=== PATIENT | male | born 1940 | race Caucasian/White ===

== ENCOUNTER 2017-04-22 18:19 | Observation (INO) | payer MEDICARE ==
[2017-04-22] MEDS ORDERED: methylPREDNISolone SOD SUCCI 125 MG/2 ML VIAL IV STA (18:24)
[2017-04-22 19:06] LABS: Basophils % (A) 1 %; CH 32.6; CHCM 33.5; Eosinophils # (A) 0.2 k/uL (0-0.7); Eosinophils % (A) 4 %; HCT 38.5 % (39.0-53.0); HDW 2.54; HGB 12.3 gm/dL (13.0-17.5); Luc % (Auto) 4; Lymphocytes # (A) 0.7 k/uL (1.0-4.8); Lymphocytes % (A) 14 %; MCH 31.4 pg (25.0-35.0); Mean Platelet Volume 6.9; Monocytes # (A) 0.3 k/uL (0-1.0); Monocytes % (A) 7 %; Neutrophils # (A) 3.2 k/uL (1.3-7.7); Neutrophils % (A) 70 %; RBC 3.93 m/uL (4.30-5.90); RDW 13.9 % (11.5-15.5); WBC 4.6 k/uL (3.8-10.6); WBC (Perox) 5.01
[2017-04-22 19:12] LABS: ALT 20 U/L (21-72); AST 20 U/L (17-59); Alkaline Phosphatase 56 U/L (38-126); Anion Gap 7 mmol/L; Blood Urea Nitrogen 22 mg/dL (9-20); Calcium 8.8 mg/dL (8.4-10.2); Carbon Dioxide 25 mmol/L (22-30); Chloride 109 mmol/L (98-107); Glucose 81 mg/dL (74-99); Non-African American GFR(MDRD) >60 (>60 ml/min/1.73 sqM); Potassium 4.5 mmol/L (3.5-5.1); Sodium 141 mmol/L (137-145); Total Bilirubin 0.6 mg/dL (0.2-1.3); Total Protein 6.5 g/dL (6.3-8.2)
[2017-04-22 19:19] LABS: INR 1.1 (<1.2); Partial Thromboplastin Time 22.7 sec (22.0-30.0); Prothrombin Time 11.4 sec (9.0-12.0)
[2017-04-22 19:24] LABS: Creatine Kinase 102 U/L (55-170)
--- NOTE | 2017-04-22 19:34 | XR ---
EXAMINATION TYPE: XR chest 2V DATE OF EXAM: 04/22/2017 COMPARISON: Most recent chest x-ray January 25, 2017 HISTORY: LT in breathing and left-sided chest pain. TECHNIQUE: Frontal and lateral views of the chest are obtained. FINDINGS: There is chronic parenchymal change without suspicious new focal air space opacity, pleura l effusion, or pneumothorax seen. The cardiac silhouette size is upper limits of normal with ectatic thoracic aorta. Rounded opacity superior to aortic knob is unchanged from September 13, 2016 x-ray. R etrocardiac opacity consistent with moderate to large size hiatal hernia is redemonstrated The osseo us structures are demineralized. IMPRESSION: Chronic changes without acute pulmonary process. No significant change from prior studie s.
[2017-04-22 19:39] LABS: Creatine Kinase MB 2.1 ng/mL (0.0-2.4); Troponin I <0.012 ng/mL (0.000-0.034)
[2017-04-22] MEDS ORDERED: ACETAMINOPHEN TAB 325 MG TAB PO PRN (20:20)
[2017-04-22] MEDS ORDERED: NALOXONE 0.4 MG/ML 1 ML VIAL IV PRN (20:20)
[2017-04-22] MEDS ORDERED: ONDANSETRON 4 MG/2 ML VIAL IVP PRN (20:20)
[2017-04-22] MEDS ORDERED: ASPIRIN 325 MG TAB PO STA (20:24)
[2017-04-22] MEDS ORDERED: HYDROcodone/APAP 5-325MG 1 EACH TAB PO PRN (20:25)
[2017-04-22] MEDS ORDERED: DEXTROSE 5%-0.45% NACL 1,000 ML IV SCH (20:30)
--- NOTE | 2017-04-22 20:35 | ED ---
General Adult HPI - General Chief complaint: Chest Pain Stated complaint: LEWIS Time Seen by Provider: 04/22/17 18:21 Source: patient, family, EMS, RN notes reviewed Mode of arrival: EMS Limitations: no limitations - History of Present Illness Initial comments: 77-year-old man presented by EMS with chief complaint of difficulty breathing. Patient also reported chest pain which initially began on the left, progressed to the right and then was bilateral. Pain was mild. Chest pain was worse with cough pain is sharp in nature. Patient only takes ibuprofen 4 times a day, he only took one treatment this morning. He has a had a cough productive of white sputum. Denies fever or chills. Denies radiating chest pain, denies nausea vomiting or diarrhea. - Related Data Home Medications Medication Instructions Recorded Confirmed Amantadine HCl [Symmetrel] 100 mg PO BID 09/27/14 04/22/17 Losartan [Cozaar] 50 mg PO DAILY 09/27/14 04/22/17 Multivitamins, Thera [Multivitamin 1 tab PO DAILY 09/27/14 04/22/17 (formulary)] Omeprazole [PriLOSEC] 20 mg PO DAILY 09/27/14 04/22/17 Carbidopa-Levodopa 25-100 mg 2 tab PO TID 12/24/15 04/22/17 [Sinemet 25-100 mg] Entacapone [Comtan] 200 mg PO TID 12/24/15 04/22/17 Vit C/E/Zn/Coppr/Lutein/Zeaxan 1 cap PO DAILY 12/24/15 04/22/17 [Preservision Areds 2 Softgel] Aspirin EC [Ecotrin Low Dose] 81 mg PO HS 04/06/16 04/22/17 Psyllium Husk 100% [Metamucil 6 gm PO DAILY 04/06/16 04/22/17 Packet] HYDROcodone/APAP 5-325MG [[place] 1 tab PO HS PRN 08/15/16 04/22/17 5-325] Mirabegron [Myrbetriq] 50 mg PO DAILY 08/16/16 04/22/17 levETIRAcetam [Keppra] 250 mg PO BID 08/16/16 04/22/17 Carbidopa-Levodopa 25-100 mg 3 tab PO DAILY@1400 09/13/16 04/22/17 [Sinemet 25-100] Acetaminophen/Diphenhydramine 1 tab PO HS PRN 04/22/17 04/22/17 [Tylenol PM 500-25mg] Budesonide Unknown Strength 1 vial INHALATION RT-QID 04/22/17 04/22/17 Carbidopa/Levodopa [Sinemet CR 1 tab PO DAILY 04/22/17 04/22/17 50-200 mg] Donepezil [Aricept] 10 mg PO HS 04/22/17 04/22/17 Meloxicam [Mobic] 7.5 mg PO DAILY 04/22/17 04/22/17 Oxybutynin Chloride [Ditropan] 2.5 mg PO HS 04/22/17 04/22/17 Previous Rx's Medication Instructions Recorded fentaNYL 25MCG/HR PATCH [Duragesic 25 mcg TRANSDERM Q72H #10 patch 12/28/15 25MCG/HR] Allergies Allergy/AdvReac Type Severity Reaction Status Date / Time adhesive tape Allergy Unknown Verified 04/22/17 19:53 iodine Allergy Unknown Verified 04/22/17 19:53 Penicillins Allergy Unknown Verified 04/22/17 19:53 Sulfa (Sulfonamide Allergy Unknown Verified 04/22/17 19:53 Antibiotics) STEROID SHOTS Allergy Unknown Uncoded 04/22/17 19:53 Review of Systems ROS Statement: Those systems with pertinent positive or pertinent negative responses have been documented in the HPI. ROS Other: All systems not noted in ROS Statement are negative. Past Medical History Past Medical History: Asthma, Cancer, Heart Failure, COPD, Hearing Disorder / Deafness, Hyperlipidemia, Hypertension, Neurologic Disorder, Osteoarthritis (OA) , Pneumonia, Skin Disorder Additional Past Medical History / Comment(s): Bilateral groin spasms sometimes making it difficult to urinate, PARKINSON'S DISEASE; SKIN CANCER with removal; PROSTATE CANCER with removal, chronic back pain, lots of concussions in the 1950 's-sports related, BOGDAN in past and used CPAP but no longer a problem since wt loss, R tibial fractur. History of Any Multi-Drug Resistant Organisms: None Reported Past Surgical History: Heart Catheterization, Orthopedic Surgery, Prostate Surgery Additional Past Surgical History / Comment(s): 2006 and 2011 cardiac caths-no intervention,PROSTATECTOMY; MARYAM TOTAL KNEE ARTHROPLASTY with R knee redone x 3, colonoscopy with polypectomy-benign, Skin cancer removals, R elbow carpal tunnel , bilateral cataract removal. Past Anesthesia/Blood Transfusion Reactions: No Reported Reaction Past Psychological History: No Psychological Hx Reported Smoking Status: Never smoker Past Alcohol Use History: Rare Past Drug Use History: None Reported - Past Family History Father Family Medical History: CVA/TIA Additional Family Medical History / Comment(s): Father of CVA/fluid on the brain at age 66 yrs. Mother Family Medical History: Cancer Additional Family Medical History / Comment(s): Mother of lung cancer at the age of 82 yrs. She was exposed to 2nd hand smoke General Exam Limitations: no limitations General appearance: alert, in distress (Moderate respiratory distress) Head exam: Present: atraumatic, normocephalic Eye exam: Present: normal appearance, PERRL ENT exam: Present: normal exam, mucous membranes moist Neck exam: Present: normal inspection, full ROM. Absent: meningismus Respiratory exam: Present: respiratory distress, wheezes, decreased breath sounds, prolonged expiratory Cardiovascular Exam: Present: regular rate, normal rhythm GI/Abdominal exam: Present: soft. Absent: distended, tenderness Extremities exam: Present: normal inspection, normal capillary refill. Absent: pedal edema Neurological exam: Present: alert, oriented X3, other (Fine resting tremor) Psychiatric exam: Present: normal affect, normal mood Skin exam: Present: warm, dry. Absent: cyanosis, diaphoretic Course Vital Signs 04/22/17 04/22/17 04/22/17 18:54 19:17 20:26 Temperature 97.7 F Pulse Rate 64 70 69 Respiratory 18 18 18 Rate Blood Pressure 145/70 143/69 145/96 O2 Sat by Pulse 99 100 98 Oximetry - Reevaluation(s) Reevaluation #1: 04/22/17 20:32 On reevaluation, after IV steroids and albuterol patient is still somewhat dyspneic, complaining of shortness of breath. EKG Findings - EKG Comments: EKG Findings:: EKG shows right bundle branch block, as well as a left anterior fascicular block, ventricular rate 76,. 174, QRS duration 120, QTC 456 Medical Decision Making - Medical Decision Making 77 year-old male with history of COPD presents with cough and chest pain worse with cough. Pain is reproducible on examination, sharp in nature. Cough is productive of sputum. There is no history of fever. Chest x-ray shows no focal pneumonia, laboratory studies including CBC, CMP, cardiac enzymes are unremarkable. On reevaluation, the patient is still dyspneic, oxygen saturation is maintained on 2 L. Other vital signs are stable. Patient's lung sounds are somewhat improved. Patient will be admitted for further treatments of albuterol, continued steroids , and reevaluation. Although his chest pain was atypical and not concerning for cardiac disease, serial troponins will be obtained. Diagnosis: COPD exacerbation - Lab Data Result diagrams: 04/22/17 18:45 04/22/17 18:45 Lab Results 04/22/17 04/22/17 04/22/17 Range/Units 18:45 18:45 18:45 WBC 4.6 (3.8-10.6) k/uL RBC 3.93 L (4.30-5.90) m/uL Hgb 12.3 L (13.0-17.5) gm/dL Hct 38.5 L (39.0-53.0) % MCV 98.0 (80.0-100.0) fL MCH 31.4 (25.0-35.0) pg MCHC 32.0 (31.0-37.0) g/dL RDW 13.9 (11.5-15.5) % Plt Count 249 (150-450) k/uL Neutrophils % 70 % Lymphocytes % 14 % Monocytes % 7 % Eosinophils % 4 % Basophils % 1 % Neutrophils # 3.2 (1.3-7.7) k/uL Lymphocytes # 0.7 L (1.0-4.8) k/uL Monocytes # 0.3 (0-1.0) k/uL Eosinophils # 0.2 (0-0.7) k/uL Basophils # 0.0 (0-0.2) k/uL PT (9.0-12.0) sec INR (<1.2) APTT (22.0-30.0) sec D-Dimer (<0.60) mg/L FEU Sodium 141 (137-145) mmol/L Potassium 4.5 (3.5-5.1) mmol/L Chloride 109 H (98-107) mmol/L Carbon Dioxide 25 (22-30) mmol/L Anion Gap 7 mmol/L BUN 22 H (9-20) mg/dL Creatinine 1.02 (0.66-1.25) mg/dL Est GFR (MDRD) Af Amer >60 (>60 ml/min/1.73 sqM) Est GFR (MDRD) Non-Af >60 (>60 ml/min/1.73 sqM) Glucose 81 (74-99) mg/dL Plasma Lactic Acid Fuentes (0.7-2.0) mmol/L Calcium 8.8 (8.4-10.2) mg/dL Magnesium 2.0 (1.6-2.3) mg/dL Total Bilirubin 0.6 (0.2-1.3) mg/dL AST 20 (17-59) U/L ALT 20 L (21-72) U/L Alkaline Phosphatase 56 (38-126) U/L Total Creatine Kinase 102 (55-170) U/L CK-MB (CK-2) 2.1 (0.0-2.4) ng/mL CK-MB (CK-2) Rel Index 2.1 Troponin I <0.012 (0.000-0.034) ng/mL NT-Pro-B Natriuret Pep pg/mL Total Protein 6.5 (6.3-8.2) g/dL Albumin 3.9 (3.5-5.0) g/dL 04/22/17 04/22/17 04/22/17 Range/Units 18:45 18:45 18:45 WBC (3.8-10.6) k/uL RBC (4.30-5.90) m/uL Hgb (13.0-17.5) gm/dL Hct (39.0-53.0) % MCV (80.0-100.0) fL MCH (25.0-35.0) pg MCHC (31.0-37.0) g/dL RDW (11.5-15.5) % Plt Count (150-450) k/uL Neutrophils % % Lymphocytes % % Monocytes % % Eosinophils % % Basophils % % Neutrophils # (1.3-7.7) k/uL Lymphocytes # (1.0-4.8) k/uL Monocytes # (0-1.0) k/uL Eosinophils # (0-0.7) k/uL Basophils # (0-0.2) k/uL PT 11.4 (9.0-12.0) sec INR 1.1 (<1.2) APTT 22.7 (22.0-30.0) sec D-Dimer 0.30 (<0.60) mg/L FEU Sodium (137-145) mmol/L Potassium (3.5-5.1) mmol/L Chloride (98-107) mmol/L Carbon Dioxide (22-30) mmol/L Anion Gap mmol/L BUN (9-20) mg/dL Creatinine (0.66-1.25) mg/dL Est GFR (MDRD) Af Amer (>60 ml/min/1.73 sqM) Est GFR (MDRD) Non-Af (>60 ml/min/1.73 sqM) Glucose (74-99) mg/dL Plasma Lactic Acid Fuentes 1.7 (0.7-2.0) mmol/L Calcium (8.4-10.2) mg/dL Magnesium (1.6-2.3) mg/dL Total Bilirubin (0.2-1.3) mg/dL AST (17-59) U/L ALT (21-72) U/L Alkaline Phosphatase (38-126) U/L Total Creatine Kinase (55-170) U/L CK-MB (CK-2) (0.0-2.4) ng/mL CK-MB (CK-2) Rel Index Troponin I (0.000-0.034) ng/mL NT-Pro-B Natriuret Pep 186 pg/mL Total Protein (6.3-8.2) g/dL Albumin (3.5-5.0) g/dL Disposition Clinical Impression: COPD exacerbation Disposition: ADMITTED IP TO THIS [facility] Condition: Stable Referrals: Chance Palomares DO [Primary Care Provider] - 1-2 days Decision to Admit Reason: Admit from EC Decision Date: 04/22/17 Decision Time: 20:35
[2017-04-22] MEDS ORDERED: ASPIRIN 81 MG CHEW PO SCH (21:00)
[2017-04-22] MEDS ORDERED: DONEPEZIL 10 MG TAB PO SCH (21:00)
[2017-04-22 21:46] VITALS: BMI 25.6
[2017-04-22] MEDS ORDERED: diphenhydrAMINE 25 MG CAP PO PRN (22:21)
[2017-04-22] MEDS ORDERED: ALBUTEROL NEBULIZED 2.5 MG/3 ML INHALATION PRN (22:37)
[2017-04-22] MEDS: AMANTADINE HCL 100 MG CAP PO SCH (23:39)
[2017-04-22] MEDS: CARBIDOPA-LEVODOPA 25-100 MG 1 EACH TAB PO SCH (23:39)
[2017-04-22] MEDS: levETIRAcetam 250 MG TAB PO SCH (23:40)
[2017-04-22] MEDS: ENTACAPONE 200 MG TAB PO SCH (23:40)
[2017-04-23] MEDS ORDERED: ALBUTEROL NEBULIZED 2.5 MG/3 ML INHALATION SCH
[2017-04-23] MEDS ORDERED: diphenhydrAMINE 25 MG CAP PO PRN (01:43)
[2017-04-23 02:22] LABS: Appearance,Urine Clear (Clear); Bilirubin,Urine Negative (Negative); Glucose,Urine (UA) Negative (Negative); Ketones,Urine Negative (Negative); Leukocyte Esterase,Urine Negative (Negative); Nitrite,Urine Negative (Negative); Particle Count 391; Protein,Urine Negative (Negative); RBC,Urine 15 /hpf (0-5); Specific Gravity,Urine 1.017 (1.001-1.035); UA Billing (MACRO vs. MICRO) MICRO; Urobilinogen,Urine <2.0 mg/dL (<2.0); WBC,Urine 3 /hpf (0-5)
[2017-04-23 08:32] LABS: Basophils % (A) 0 %; CH 32.5; CHCM 33.6; Eosinophils % (A) 0 %; HCT 39.3 % (39.0-53.0); HDW 2.51; HGB 12.7 gm/dL (13.0-17.5); Luc # (Auto) 0.15; Luc % (Auto) 2; Lymphocytes # (A) 0.4 k/uL (1.0-4.8); Lymphocytes % (A) 4 %; MCH 31.5 pg (25.0-35.0); MCHC 32.4 g/dL (31.0-37.0); MCV 97.4 fL (80.0-100.0); Mean Platelet Volume 7.1; Monocytes # (A) 0.3 k/uL (0-1.0); Monocytes % (A) 3 %; Neutrophils % (A) 92 %; RBC 4.03 m/uL (4.30-5.90); RDW 13.4 % (11.5-15.5); WBC 9.8 k/uL (3.8-10.6); WBC (Perox) 9.93
[2017-04-23 08:50] LABS: Anion Gap 11 mmol/L; Blood Urea Nitrogen 26 mg/dL (9-20); Calcium 9.5 mg/dL (8.4-10.2); Carbon Dioxide 19 mmol/L (22-30); Chloride 108 mmol/L (98-107); Glucose 140 mg/dL (74-99); Non-African American GFR(MDRD) >60 (>60 ml/min/1.73 sqM); Potassium 4.7 mmol/L (3.5-5.1); Sodium 138 mmol/L (137-145)
[2017-04-23] MEDS: ALBUTEROL NEBULIZED 2.5 MG/3 ML INHALATION SCH ×2 (08:52→11:33)
[2017-04-23] MEDS ORDERED: LOSARTAN 50 MG TAB PO SCH (09:00)
[2017-04-23] MEDS ORDERED: predniSONE 50 MG TAB PO SCH (09:00)
[2017-04-23] MEDS: levETIRAcetam 250 MG TAB PO SCH (09:55)
[2017-04-23] MEDS: ENTACAPONE 200 MG TAB PO SCH (09:55)
[2017-04-23] MEDS: CARBIDOPA-LEVODOPA 25-100 MG 1 EACH TAB PO SCH (09:55)
[2017-04-23] MEDS: AMANTADINE HCL 100 MG CAP PO SCH (09:55)
[2017-04-23] MEDS ORDERED: CARBIDOPA-LEVODOPA 25-100 MG 1 EACH TAB PO SCH (14:00)
[2017-04-23 14:45] VITALS: BP 154/81; PULSE 93; RESP 17; TEMP 98
--- NOTE | 2017-04-24 15:11 | HP ---
DATE OF ADMISSION: 04/22/17 COMBINED HISTORY AND PHYSICAL/DISCHARGE SUMMARY CHIEF COMPLAINT: Shortness of breath. HISTORY OF PRESENT ILLNESS: This is a 77-year-old gentleman with past medical history of multiple medical problems including asthma, COPD, CHF, dementia, being followed by Dr. Palomares in the outpatient setting was admitted to the hospital with increasing shortness of breath. The patient had difficulty breathing and the patient also had some vague chest pains. The patient came to [facility] and was admitted for further evaluation and treatment. There is no history of fever, rigors or chills. No history of headache, loss of consciousness or seizures. Past medical history of asthma, COPD, CHF, hypertension, history of DJD, cardiac catheterization. Medications prior to admission are: Home medications are: 1. patch 25 mcg q72 hours. 2. Oxybutynin. 3. Hydrocodone. 4. Aricept. 5. Ecotrin. 6. Tylenol. 7. Meloxicam. 8. Cilium. 9. Carbidopa/L-Dopa. 10. Keppra. 12. Prilosec. 13. Symmetrel. 14. Sinemet. 15. Vitamins. 16. Cozaar. 17. Prednisone taper. 18. Cipro. 19. Ventolin. ALLERGIES: ADHESIVE TAPES, IODINE, STEROIDS. FAMILY HISTORY: History of cerebrovascular accident, transient ischemic attack in the family. SOCIAL HISTORY: No history of smoking and no history of alcohol intake. REVIEW OF SYSTEMS: HEENT: Diminished vision. Diminished hearing. Cardiovascular system: No angina or palpitations. Respiratory: As mentioned earlier. GI: As mentioned earlier. : No dysuria. Nervous system: No numbness, weakness. Allergy/Immunology: No asthma or hayfever. Musculoskeletal : As mentioned earlier. Hematology/oncology: No history of anemia. Endocrine: No history of diabetes or hypothyroidism. Constitutional: As mentioned earlier. Dermatology: Negative. Rheumatology: Negative. Psychiatry: As mentioned earlier. PHYSICAL EXAMINATION: Alert and oriented times three. Pulse 83. Blood pressure 150/81. Respiratory rate 18, temperature 98. Pulse ox 97% on room air. HEENT: Conjunctivae normal. Oral mucosa moist. NECK: No JVD. No carotid bruit. No lymph node enlargement. No thyroid enlargement. Cardiovascular: S1, S2 muffled. Respiratory: Breath sounds diminished at the bases. Bilateral scattered rhonchi and crackles. Chest is emphysematous and kyphoscoliosis also present. Abdomen is soft. Nontender. No mass palpable. Legs: No edema. No swelling. Nervous system: Higher functions as mentioned earlier. Moves all four limbs. No focal deficits. Lymphatics: No lymph nodes palpable in the neck, axillae and groin. SKIN: No ulcer, rash or bleeding. LABS: WBC 9.8, hemoglobin 12.7. Sodium 135. Potassium 4.7. ASSESSMENT: 1. Chronic obstructive pulmonary disease, acute exacerbation with acute purulent tracheobronchitis. 2. Chest pain for evaluation, myocardial infarction ruled out, rule out possibly musculoskeletal. 3. History of asthma, chronic obstructive pulmonary disease. 4. History of congestive heart failure. 5. Hypertension. 6. Hyperlipidemia. RECOMMENDATIONS AND DISCUSSION: In this 77 -year-old gentleman who presented with shortness of breath seems to be improving at this time. I recommend the patient to be discharged on home medications. Chest pain appears to be noncardiac in nature. However, prognosis is extremely guarded. I would recommend close follow-up with multiple consultants in the outpatient setting. Otherwise, I discussed with the patient. The patient is keen on going home. See orders for discharge medications and ( ) discharge. I would recommend steroid taper as well as antibiotics as well and continue updrafts including bronchodilators. ZAID
== END 2017-04-23 15:25 | disposition home or self-care (01) ==
LOC: EC 18:19 → 4MS4W 20:24 → 3OBS 04-23 08:03
PROVIDERS: ADMIT Hospitalist; ATTEND Hospitalist
DX: J44.1 Chronic obstructive pulmonary disease with (acute) exacerbation (principal); R07.89 Other chest pain; J45.909 Unspecified asthma, uncomplicated; I11.0 Hypertensive heart disease with heart failure; I50.9 Heart failure, unspecified; E78.5 Hyperlipidemia, unspecified; F03.90 Unspecified dementia, unspecified severity, without behavioral disturbance, psychotic disturbance, mood disturbance, and anxiety; G20 Parkinson's disease; M19.90 Unspecified osteoarthritis, unspecified site; G89.29 Other chronic pain; M54.9 Dorsalgia, unspecified; Z79.899 Other long term (current) drug therapy; Z79.82 Long term (current) use of aspirin; Z88.3 Allergy status to other anti-infective agents; Z88.0 Allergy status to penicillin; Z88.2 Allergy status to sulfonamides; Z88.8 Allergy status to other drugs, medicaments and biological substances; Z91.048 Other nonmedicinal substance allergy status; H91.90 Unspecified hearing loss, unspecified ear; Z85.828 Personal history of other malignant neoplasm of skin; Z85.46 Personal history of malignant neoplasm of prostate; Z82.3 Family history of stroke
CPT/HCPCS: 99285; 96374 ×2; 96361 ×2; 36415; 94640 ×2; 93005; 85379; 83880; 80053; 80048; 82550; 82553; 83605; 83735; 84484; 85025 ×2; 85610; 85730; 81001; 87040; 87086; 71020; G0378 ×2; J2930; J7512

== ENCOUNTER → 2017-06-21 | Outpatient (CLI) | payer MEDICARE ==
--- NOTE | 2017-06-21 10:47 | XR ---
EXAMINATION TYPE: XR chest 2V DATE OF EXAM: 06/21/2017 COMPARISON: Prior chest x-ray 04/22/2017 HISTORY: Cough and shortness of breath TECHNIQUE: Frontal and lateral views of the chest are obtained. FINDINGS: Retrocardiac air-fluid level likely represents hiatal hernia. The descending aorta is tort uous and dense. Prominent lung volume may be indicative of underlying COPD. There are coronary artery calcifications. Pulmonary vascularity and tisha not significantly changed. No focal airspace disease, pneumothorax, or pleural effusion. IMPRESSION: No acute cardiopulmonary process. Hiatal hernia. Additional findings above.
== END | disposition home or self-care (01) ==
LOC: RADXRYALE 10:09
PROVIDERS: ATTEND Family Medicine
DX: K44.9 Diaphragmatic hernia without obstruction or gangrene (principal); R05 Cough; R06.02 Shortness of breath
CPT/HCPCS: 71020